=== PATIENT | female | born 1945 | race American Indian/Alaskan Native ===

== ENCOUNTER 2019-06-26 20:40 | Emergency (ER) | payer MEDICARE ==
--- NOTE | 2019-06-26 21:04 | Emergency Department Report ---
ED Neuro Deficit HPI - General Chief Complaint: Fall Stated Complaint: fall Time Seen by Provider: 06/26/19 20:45 Source: patient, EMS - History of Present Illness Initial Comments: 73-year-old female presents to ED via EMS. Patient reports to EMS that at approximately 9:30 this morning she got out of bed and then fell down and was unable to get up. Family tried to get in touch with the patient and her own 1:00 this afternoon but did not get an answer. Family returned to patient's home approximately one hour ago and had to break into her house in order to get inside. EMS was called. They state patient was laying on the floor next to her bed, face down. States patient had urinated on herself. Patient is currently unable to move her left arm and leg and has apparent facial droop. She denies any previous history of stroke in the past. Last known well time was 10:30 PM last night when patient went to bed. Patient has history of Afib, has pacemaker in place. States she was previously on coumadin but her physician took her off. -: This morning Location: left face, left arm, left leg Presenting Symptoms: Present: Weak/Paralyzed One Side History of same: No Place: home Severity: moderate Improves With: none Worsens With: none On Anticoagulants: No Associated Symptoms: denies: chest pain, headaches, nausea/vomiting Treatments Prior to Arrival: none - Related Data Home Medications: Home Medications Medication Instructions Recorded Confirmed Last Taken Anastrozole (Nf) [Arimidex (Nf)] 1 mg PO DAILY 06/06/13 06/26/19 06/06/13 Diltiazem HCl 60 mg PO DAILY 06/06/13 06/26/19 06/06/13 carvediloL [Coreg] 6.25 mg PO BID 06/06/13 06/26/19 06/25/19 Prednisone [predniSONE (Apoorva) ER 5 mg PO QDAY 06/26/19 06/26/19 Unknown TAB] traMADoL [Ultram] 50 mg PO 06/26/19 06/25/19 traZODone [Desyrel] 50 mg PO QHS 06/26/19 06/26/19 Unknown Previous Rx's Medication Instructions Recorded Last Taken Type HYDROcodone/APAP 5-325 [[place] 1 each PO Q6H PRN #10 tablet 06/06/13 Unknown Rx 5-325 mg TAB] Allergies/Adverse Reactions: Allergies Allergy/AdvReac Type Severity Reaction Status Date / Time No Known Allergies Allergy Verified 06/06/13 08:32 ED Review of Systems ROS: Stated complaint: POSS HYPERTHERMA Other details as noted in HPI Comment: All other systems reviewed and negative Cardiovascular: denies: chest pain Neurological: weakness, numbness. denies: headache ED Past Medical Hx - Past Medical History Hx Hypertension: Yes Hx Arthritis: Yes Hx HIV: No - Surgical History Hx Breast Surgery: Yes (left lumpectomy) - Social History Smoking Status: Never Smoker - Medications Home Medications: Home Medications Medication Instructions Recorded Confirmed Last Taken Type Anastrozole (Nf) [Arimidex (Nf)] 1 mg PO DAILY 06/06/13 06/26/19 06/06/13 History Diltiazem HCl 60 mg PO DAILY 06/06/13 06/26/19 06/06/13 History HYDROcodone/APAP 5-325 [[place] 1 each PO Q6H PRN #10 tablet 06/06/13 06/26/19 Unknown Rx 5-325 mg TAB] carvediloL [Coreg] 6.25 mg PO BID 06/06/13 06/26/19 06/25/19 History Prednisone [predniSONE (Apoorva) ER 5 mg PO QDAY 06/26/19 06/26/19 Unknown History TAB] traMADoL [Ultram] 50 mg PO 06/26/19 06/25/19 History traZODone [Desyrel] 50 mg PO QHS 06/26/19 06/26/19 Unknown History ED Neuro Physical Exam - General General appearance: alert Suspected Stroke: Yes - Head Head exam: Present: atraumatic, normocephalic - Eye Eye exam: Present: other (edema to bilateral lids; unable to look leftward) - ENT ENT exam: Present: mucous membranes moist - Neck Neck exam: Present: normal inspection - Respiratory Respiratory exam: Present: normal lung sounds bilaterally. Absent: respiratory distress - Cardiovascular Cardiovascular Exam: Present: tachycardia, irregular rhythm - GI/Abdominal GI/Abdominal exam: Present: soft. Absent: distended, tenderness - Neurological Exam Neurological exam: Present: alert - NIHSS Assessment Interval: Baseline 1a. Level of Consciousness: alert/keenly responsive 1b. LOC Questions: answers both correctly 1c. LOC Commands: performs tasks correctly 2. Best Gaze: forced deviation 3. Visual: no visual loss 4. Facial Palsy: partial paralysis 5b. Motor Arm Right: no drift 5a. Motor Arm Left: no movement 6a. Motor Leg Left: no gravity effort 6b. Motor Leg Right: some gravity effort 7. Limb Ataxia: absent 8. Sensory: severe/total sensory loss 9. Best Language: no aphasia 10. Dysarthria: mild/moderate dysarthria 11. Extinction/Inattention: complete neglect Total Score: 18 Stroke Severity: Moderate to Severe Stroke - Psychiatric Psychiatric exam: Present: normal affect, normal mood - Skin Skin exam: Present: warm, dry, intact, normal color ED Course Vital Signs 06/26/19 06/26/19 06/26/19 21:04 21:18 21:30 Temperature Pulse Rate 162 H 157 H Respiratory 18 29 H 29 H Rate Blood Pressure O2 Sat by Pulse 100 100 97 Oximetry 06/26/19 06/26/19 06/26/19 21:32 22:00 22:38 Temperature 97.0 F L Pulse Rate 152 H 150 H Respiratory 18 30 H Rate Blood Pressure 147/111 149/111 153/96 O2 Sat by Pulse 90 100 99 Oximetry - Reevaluation(s) Reevaluation #1: 06/26/19 21:10 CT shows acute right MCA stroke w/ CT changes. Pt outside the wndow for tPA. Teleneurologist advises obtaining CTA but, states not a candidate for interventional neurological procedure due to changes seen on plain CT. - Consultations Consultation #1: 06/26/19 23:23 Due to mass effect without midline shift seen on CT, neurologist suggests pt be transferred to facility w/ neuro ICU in case she declines. Spoke w/ [facility], neither have ICU beds available. Will try [facility]. 06/27/19 00:06 [facility] transfer line states no ICU beds at [facility] or [facility]. ICU beds available at [facility]. Spoke w/ neurologist, Dr Barbosa, at [facility]. Agrees to consult on pt. 06/27/19 00:27 Spoke w/ Ede Cerrato graphite grinder, Dr Bunch, and neurointensivist, Dr Foss. Pt will be transferred, accepted by Dr Bunch. - Lab Data Result diagrams: 06/26/19 21:15 06/26/19 21:15 Lab Results 06/26/19 06/26/19 06/26/19 Range/Units 21:15 21:15 21:15 WBC 13.1 H (4.5-11.0) K/mm3 RBC 5.72 H (3.65-5.03) M/mm3 Hgb 15.5 H (10.1-14.3) gm/dl Hct 48.9 H (30.3-42.9) % MCV 86 (79-97) fl MCH 27 L (28-32) pg MCHC 32 (30-34) % RDW 17.7 H (13.2-15.2) % Plt Count 311 (140-440) K/mm3 Lymph % (Auto) 7.3 L (13.4-35.0) % [place] % (Auto) 10.0 H (0.0-7.3) % Eos % (Auto) 0.0 (0.0-4.3) % Baso % (Auto) 0.2 (0.0-1.8) % Lymph # 0.9 L (1.2-5.4) K/mm3 [place] # 1.3 H (0.0-0.8) K/mm3 Eos # 0.0 (0.0-0.4) K/mm3 Baso # 0.0 (0.0-0.1) K/mm3 Seg Neutrophils % 82.5 H (40.0-70.0) % Seg Neutrophils # 10.8 H (1.8-7.7) K/mm3 PT 14.7 (12.2-14.9) Sec. INR 1.13 (0.87-1.13) APTT 28.7 (24.2-36.6) Sec. Thrombin Time 17.8 (15.1-19.6) Sec. Sodium 136 L (137-145) mmol/L Potassium 4.4 (3.6-5.0) mmol/L Chloride 96.6 L (98-107) mmol/L Carbon Dioxide 20 L (22-30) mmol/L Anion Gap 24 mmol/L BUN 16 (7-17) mg/dL Creatinine 0.4 L (0.7-1.2) mg/dL Estimated GFR > 60 ml/min BUN/Creatinine Ratio 40 % Glucose 101 H (65-100) mg/dL Calcium 10.5 H (8.4-10.2) mg/dL Total Creatine Kinase 438 H (30-135) units/L CK-MB (CK-2) 8.7 H (0.0-4.0) ng/mL CK-MB (CK-2) Rel Index 1.9 (0-4) Troponin T < 0.010 (0.00-0.029) ng/mL - EKG Data -: EKG Interpreted by Me Rate: tachycardia (rate 134) Interpretation: nonspecific ST-T wave ludmila, other (Afib, prolonged QT) - Radiology Data Radiology results: report reviewed, image reviewed - Medical Decision Making 73-year-old female with acute right MCA infarct. Patient is outside the window for TPA. She is also not a candidate for interventional neurology due to the changes seen on CT. However, due to mass effect seen on CT, patient will be transferred to [facility], where she can be observed closely in a neuro ICU and where neurosurgery is available if edema worsens and she requires surgical intervention. Pt given diltiazem here in ED for Afib w/ RVR. She has been accepted by Dr Bunch. Awaiting bed assignment. - Differential Diagnosis hemorrhagic CVA, ischemic CVA, traumatic injury - Thrombolytic Inclusion/Exclusion Thrombolytic Exclusion Criteria: Symptom Onset > 3 Hours Critical Care Time: Yes Critical care time in (mins) excluding proc time.: 35 Critical care attestation.: If time is entered above; I have spent that time in minutes in the direct care of this critically ill patient, excluding procedure time. 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
[2019-06-26 21:23] LABS: Basophils % (Auto) 0.2 % (0.0-1.8); Hematocrit 48.9 % (30.3-42.9); Hemoglobin 15.5 gm/dl (10.1-14.3); Lymphocytes # (Auto) 0.9 K/mm3 (1.2-5.4); Lymphocytes % (Auto) 7.3 % (13.4-35.0); Mean Corpuscular HGB Conc 32 % (30-34); Mean Corpuscular Volume 86 fl (79-97); Monocytes # (Auto) 1.3 K/mm3 (0.0-0.8); Platelet Count 311 K/mm3 (140-440); Red Blood Count 5.72 M/mm3 (3.65-5.03); Red Cell Distribution Width 17.7 % (13.2-15.2)
[2019-06-26 21:33] LABS: INR 1.13 (0.87-1.13)
[2019-06-26 21:34] LABS: Partial Thromboplastin Time 28.7 Sec. (24.2-36.6); Thrombin Time 17.8 Sec. (15.1-19.6)
[2019-06-26] MEDS ORDERED: ASPIRIN 300 MG RECT SUPP PR ONE (21:37)
--- NOTE | 2019-06-26 21:37 | Cat Scan Report ---
NONENHANCED CT SCAN OF THE BRAIN: INDICATION: MAIN: code stroke; CODE STROKE; S/P FALL; CALL ED AT [phone]. TECHNIQUE: Routine CT head without contrast. Sagittal and coronal reformatted images were obtained. A ll CT scans at this location are performed using CT dose reduction for ALARA by means of automated ex posure control. COMPARISON: CT scan of the brain from 06/11/2012 FINDINGS: BRAIN / INTRACRANIAL CONTENTS: Hemorrhage:No intracranial hemorrhage; no subarachnoid hemorrhage Stencil atherosclerotic changes are seen in the supraclinoid internal carotid arteries bilaterally an d in the left vertebral artery. Stroke mimics: No subdural or epidural hematoma or space taking lesion Acute/subacute territorial infarction: Abnormal CT scan. Acute/subacute right middle cerebral artery territory infarction is seen without he morrhagic changes. Ischemic changes are extending into the right anterior cerebral artery territory a lso. Mass effect is seen more the right lateral ventricle. I do not see midline shift. Vasculopathy: Nonhemorrhagic right middle cerebral artery territory infarction No CT findings to suggest a vasculopathy. ASPECT score: 0 Craniocervical junction:No significant abnormality Orbits:No significant abnormality Paranasal sinuses/mastoids:No significant abnormality Additional findings: None IMPRESSION: Acute/subacute This exam was performed as part of a code stroke protocol. The exam was completed at [facility] on 06/26/2019 8:27 PM. The exam was reviewed at 8:30 PM Central standard time and ER physician was notified at 8:32 PM Central standard time. Signer Name: Jessica Nieto MD Signed: 06/26/2019 9:33 PM Workstation Name: [email or web address]
--- NOTE | 2019-06-26 21:37 | Emergency Department Report ---
ED Neuro Deficit HPI - General Chief Complaint: Fall Stated Complaint: fall Time Seen by Provider: 06/26/19 20:45 Source: patient, EMS Limitations: No Limitations - History of Present Illness Initial Comments: [facility] TeleStroke Metrics: LKW: 2230 last night Door Time: 2039 [facility] Contacted: 2051 [facility] at Bedside: 2058 NIHSS: 2112 Decision on Alteplase: Not to give as the patient's last known well time was last night. Interventional Candidate: Not a candidate due to large established area of acute right MCA stroke already seen on her head CT. ASPECTS less than 6. Chief Complaint: Fall with left-sided weakness and numbness HPI: Asked to see this patient in emergent telemedicine consultation utilizing interactive audio and video technologies. Consultation was performed with assistance of ancillary / medical staff at bedside. Verbal consent to perform the examination with telemedicine was obtained. Patient agreed to proceed with the consultation for acute stroke protocol. 51-cndh-sjze-old right-handed -[place] female who comes to the emergency room by EMS after having an apparent fall and was noted to have left-sided weakness. Patient has never had a stroke before. She has a reported history of pacemaker placement and atrial fibrillation. Patient states she is on Coumadin. Patient states that she went to bed around 10:30 PM last night at her baseline. She apparently got up around 9:30 AM this morning and had a fall. She was unable to get up. Patient is unable to tell me if her fall was due to left- sided weakness or if she woke up with left-sided weakness. Patient's family called her around 1 PM today but she did not answer. They eventually broke into her home, and found the patient on the floor facedown next to her bed. She was incontinent of urine. She has significant left-sided weakness and a facial droop. PMH: Hypertension, arthritis, neuropathy, atrial fibrillation, and pacemaker placement SOC: Negative x3. Patient lives alone. FMH: Negative for stroke. ROS: 13 point review of systems were reviewed with the patient, and are all negative with the exception of the aforementioned in the history of present illness. VS: Nothing charted yet. Exam: Patient is in no apparent distress. Patient appears as stated age. No obvious acute respiratory or cardiac distress. Patient is well groomed and well-nourished. 1a- LOC: Keenly responsive - 0 1b- LOC questions: Answers both questions correctly - 0 1c- LOC commands- Performs both tasks correctly- 0 2- Gaze: Right gaze deviation - 2 3- Visual Yuen: normal, no Visual field deficit - 0 4- Facial movements: left facial palsy - 2 5- Upper limb motor left arm drift - 4 6- Lower limb motor left greater than right leg drifts - 5 7- Limb Coordination: absent ataxia - 0 8- Sensory: severe left sensory loss - 2 9- Language - No aphasia - 0 10- Speech - Mild dysarthria - 1 11- Neglect / Extinction left sided neglect - 2 NIHSS score: 18 Diagnostic Data: WBC 13.1, hemoglobin 15.5, platelets 311 CT of the head showed a large acute right MCA stroke without hemorrhage. Large areas of hypodensity already well-established within the majority of the right MCA territory Medical Data Reviewed: 1.Data?reviewed include clinical labs, radiology,?and medical tests; 2.Tests?results discussed w/performing or interpreting physician; 3.Obtaining/reviewing old medical records; 4.Obtaining?case history from another source; 5.Independent?review of image, tracing, or specimen. Medical Decision Making: - Extensive number of diagnosis or management options are considered below. - Extensive amount of complex data reviewed. - High risk of complication and/or morbidity or mortality are associated with differential diagnostic considerations below. - There may be?uncertain?outcome and increased probability of prolonged functional impairment or high probability of severe prolonged functional impairment associated with some of these differential diagnosis. Differential Diagnosis for Stroke: 1.?Cardioembolic?stroke 2. Small vessel disease/lacune 3. Thromboembolic, nrwyvx-df-nzivcy mechanism 4.?Hypercoagulable?state-related infarct 5. Transient ischemic attack 6. Thrombotic mechanism, large artery disease Assessment: 1. Acute right MCA stroke 2. Atrial fibrillation on Coumadin 3. Pacemaker placement 4. Hypertension 5. Arthritis 6. Peripheral neuropathy Recommendations: Can still proceed with formal CTA of the head and neck to evaluate her intracranial and extracranial blood vessels. Patient can be admitted to the hospital for further monitoring of her neurological status. Check echocardiogram to gauge her cardiac function. Maintain the patient on telemetry to monitor her atrial fibrillation. Maintain the patient on rectal aspirin for now. Would avoid anticoagulation for 2 weeks given the large size of her acute right MCA stroke. Consult PT, OT, and ST. Check hemoglobin A1c and lipid panel. Consult local neurology team to assist with evaluation and management. Continue supportive care. Thank you for allowing [facility] to participate in the care of your patient. Please call me, Dr. Alanis, with any questions at [phone]. Case discussed with the ER staff and Dr. Gerard. Critical Care notation: I was called to see this critical patient emergently. I personally evaluated this critical patient for acute stroke evaluation, and determining their eligibility for IV Alteplase and interventional therapies. I have spent approximately 18 minutes with the patient, including time at bedside, time discussing the case with other physicians, reviewing plan of care, and time independently reviewing the records and scans. Location: left face, left arm, left leg History of same: No Place: home Severity: moderate Improves With: none Worsens With: none - Related Data Home Medications: Home Medications Medication Instructions Recorded Confirmed Last Taken Anastrozole (Nf) [Arimidex (Nf)] 1 mg PO DAILY 06/06/13 06/06/13 06/06/13 Diltiazem HCl 60 mg PO DAILY 06/06/13 06/06/13 06/06/13 carvediloL [Coreg] 6.25 mg PO BID 06/06/13 06/06/13 06/06/13 Previous Rx's Medication Instructions Recorded Last Taken Type Cephalexin [Keflex] 500 mg PO TID #9 capsule 06/06/13 Unknown Rx HYDROcodone/APAP 5-325 [[place] 1 each PO Q6H PRN #10 tablet 06/06/13 Unknown Rx 5-325 mg TAB] Allergies/Adverse Reactions: Allergies Allergy/AdvReac Type Severity Reaction Status Date / Time No Known Allergies Allergy Verified 06/06/13 08:32 ED Review of Systems ROS: Stated complaint: fall Other details as noted in HPI ED Past Medical Hx - Past Medical History Hx Hypertension: Yes Hx Arthritis: Yes Hx HIV: No - Surgical History Hx Breast Surgery: Yes (left lumpectomy) - Social History Smoking Status: Never Smoker - Medications Home Medications: Home Medications Medication Instructions Recorded Confirmed Last Taken Type Anastrozole (Nf) [Arimidex (Nf)] 1 mg PO DAILY 06/06/13 06/06/13 06/06/13 History Cephalexin [Keflex] 500 mg PO TID #9 capsule 06/06/13 Unknown Rx Diltiazem HCl 60 mg PO DAILY 06/06/13 06/06/13 06/06/13 History HYDROcodone/APAP 5-325 [[place] 1 each PO Q6H PRN #10 tablet 06/06/13 Unknown Rx 5-325 mg TAB] carvediloL [Coreg] 6.25 mg PO BID 06/06/13 06/06/13 06/06/13 History ED Neuro Physical Exam - General Limitations: No Limitations General appearance: alert, in no apparent distress Suspected Stroke: Yes - NIHSS Assessment Interval: Baseline 1a. Level of Consciousness: alert/keenly responsive 1b. LOC Questions: answers both correctly 1c. LOC Commands: performs tasks correctly 2. Best Gaze: forced deviation 3. Visual: no visual loss 4. Facial Palsy: partial paralysis 5b. Motor Arm Right: no drift 5a. Motor Arm Left: no movement 6a. Motor Leg Left: no gravity effort 6b. Motor Leg Right: some gravity effort 7. Limb Ataxia: absent 8. Sensory: severe/total sensory loss 9. Best Language: no aphasia 10. Dysarthria: mild/moderate dysarthria 11. Extinction/Inattention: complete neglect Total Score: 18 Stroke Severity: Moderate to Severe Stroke ED Course Vital Signs 06/26/19 21:32 Temperature 97.0 F L Pulse Rate 152 H Respiratory 18 Rate Blood Pressure 147/111 O2 Sat by Pulse 90 Oximetry - Lab Data Result diagrams: 06/26/19 21:15 Lab Results 06/26/19 06/26/19 Range/Units 21:15 21:15 WBC 13.1 H (4.5-11.0) K/mm3 RBC 5.72 H (3.65-5.03) M/mm3 Hgb 15.5 H (10.1-14.3) gm/dl Hct 48.9 H (30.3-42.9) % MCV 86 (79-97) fl MCH 27 L (28-32) pg MCHC 32 (30-34) % RDW 17.7 H (13.2-15.2) % Plt Count 311 (140-440) K/mm3 Lymph % (Auto) 7.3 L (13.4-35.0) % [place] % (Auto) 10.0 H (0.0-7.3) % Eos % (Auto) 0.0 (0.0-4.3) % Baso % (Auto) 0.2 (0.0-1.8) % Lymph # 0.9 L (1.2-5.4) K/mm3 [place] # 1.3 H (0.0-0.8) K/mm3 Eos # 0.0 (0.0-0.4) K/mm3 Baso # 0.0 (0.0-0.1) K/mm3 Seg Neutrophils % 82.5 H (40.0-70.0) % Seg Neutrophils # 10.8 H (1.8-7.7) K/mm3 PT 14.7 (12.2-14.9) Sec. INR 1.13 (0.87-1.13) APTT 28.7 (24.2-36.6) Sec. Thrombin Time 17.8 (15.1-19.6) Sec. Critical care attestation.: If time is entered above; I have spent that time in minutes in the direct care of this critically ill patient, excluding procedure time. ED Disposition Clinical Impression: Right middle cerebral artery stroke Disposition: DC OP ADMIT IP TO THIS HOSP Is pt being admited?: Yes Does the pt Need Aspirin: Yes Condition: Stable
--- NOTE | 2019-06-26 21:43 | Cat Scan Report ---
CT FACE HISTORY: Fell down COMPARISON: None. TECHNIQUE: Axial images of the face were obtained. Coronal reformats were generated. All CT scans at this location are performed using CT dose reduction for ALARA by means of automated exposure control . CONTRAST: None. FINDINGS: Facial bones: Midface is normal; nasal bones and the perpendicular plate of ethmoid are normal. Nasos eptal cartilage is normal. Orbits are normal. Zygomatic maxillary complex is normal. Mandible is normal. Retention cyst is seen in the left maxillary sinus. Mucosal thickening is seen in the ethmoid air vinod ls bilaterally. Paranasal sinuses: Clear. Orbits: No significant abnormality. Additional findings: None. IMPRESSION: 1. I do not see sequela from the trauma in the facial region Signer Name: Jessica Nieto MD Signed: 06/26/2019 9:38 PM Workstation Name: [id number]
[2019-06-26 21:48] LABS: Creatine Kinase MB 8.7 ng/mL (0.0-4.0)
[2019-06-26 21:49] LABS: BUN/Creatinine Ratio 40; Blood Urea Nitrogen 16 mg/dL (7-17); Calcium 10.5 mg/dL (8.4-10.2); Hemolysis Index 20
--- NOTE | 2019-06-26 21:51 | Cat Scan Report ---
Exam: CT cervical spine History: fall; Technique: Contiguous thin cut axial images obtained through the cervical spine. Sagittal and aguirre l reconstructions performed by the technologist. All CT scans at this location are performed using CT dose reduction for ALARA by means of automated exposure control. Findings: No priors. There is no evidence of fracture or traumatic subluxation. Vertebral bodies are normal in height and alignment. Compression fracture. Normal. Transverse images, I do not see fracture involving the bony canal. Bulging disc is seen at C2-C3 disc level. Disc space is narrowed at C3-C4, C4-C5, C5-C6 disc levels. Disc osteophyte complex is seen at C3-C4, C4-C5, C5-C6 and C6-C7 disc levels resulting in foraminal stenoses. This is quite impressive at C4-C5 disc level. Intervertebral disc spaces are well-maintained. Surrounding soft tissues are grossly normal. Impression: No signs of acute bony trauma to the cervical spine. Signer Name: Jessica Nieto MD Signed: 06/26/2019 9:46 PM Workstation Name: [id number]
[2019-06-26] MEDS ORDERED: dilTIAZem 25 MG/5 ML INJ IV ONE (23:16)
--- NOTE | 2019-06-26 23:34 | Cat Scan Report ---
CTA NECK WITH CONTRAST HISTORY: Acute right middle cerebral artery stroke COMPARISON: None. TECHNIQUE: Routine CTA of the neck was performed. 3-D/MIP reformats were postprocessed. Percentage s tenosis is determined by direct quantitative measurements of diseased internal carotid artery diamete r compared with normal distal internal carotid artery reference segments or by criteria similar to NA SCET where applicable.All CT scans at this location are performed using CT dose reduction for ALARA b y means of automated exposure control CONTRAST: 100 ml of Omnipaque 350 FINDINGS: Aortic arch: No significant abnormality. Cervical vertebral arteries: No significant abnormality. Common carotid arteries: No significant abnormality. Carotid bifurcations: Abnormal right carotid bifurcation 12 mm long thrombus is seen in the proximal right internal carotid artery narrowing the lumen by 70%. Carotid bifurcation is normal. Cervical internal carotid arteries: No significant abnormality. Additional findings: 12 mm long thrombus with 70% stenoses in the proximal right internal carotid art francis IMPRESSION: 1. No significant abnormality. Signer Name: Jessica Nieto MD Signed: 06/26/2019 11:30 PM Workstation Name: [id number]
--- NOTE | 2019-06-26 23:42 | Cat Scan Report ---
CTA HEAD WITH CONTRAST HISTORY: Acute right middle cerebral artery stroke COMPARISON: None. TECHNIQUE: Routine non-contrast CT Head, CTA of the head and post-contrast CT Head are performed. 3-D /MIP reformats postprocessed. All CT scans at this location are performed using CT dose reduction for ALARA by means of automated exposure control CONTRAST: 100 ml of Omnipaque 350 FINDINGS: CTA Head: Intracranial vertebral arteries: No significant abnormality. Basilar artery: No significant abnormality. Posterior cerebral arteries: No significant abnormality. Intracranial internal carotid arteries: Decreased flow is seen in the right internal carotid artery. Images patent up to internal carotid artery terminus. Left internal carotid artery is normal up to te rminus. Anterior cerebral arteries: Left anterior cerebral arteriy normal. Though there is antegrade flow in the right anterior cerebral artery, the flow is much less. Middle cerebral arteries: Normal left middle cerebral artery Occluded right middle cerebral artery 1 cm from the terminus Dural venous sinuses:Not optimally opacified. No significant abnormality. Additional findings: None. IMPRESSION: Decreased flow in the intracranial right internal carotid artery; occluded right middle cerebral earnest ry 1 cm from the right internal carotid artery terminus Signer Name: Jessica Nieto MD Signed: 06/26/2019 11:38 PM Workstation Name: [id number]
[2019-06-27 01:32] VITALS: BP 182/114
== END 2019-06-27 02:05 | disposition other institution (70) ==
LOC: ED 20:40
DX: I63.89 Other cerebral infarction (principal); I48.91 Unspecified atrial fibrillation; Z79.01 Long term (current) use of anticoagulants; I10 Essential (primary) hypertension; M19.90 Unspecified osteoarthritis, unspecified site; Z98.890 Other specified postprocedural states; Z79.899 Other long term (current) drug therapy
CPT/HCPCS: 36415; 70450; 70486; 70496; 70498; 72125; 80048; 82550; 82553; 84484; 85025; 85610; 85670; 85730; 93005; 93010; 96374; 99291; Q9967